=== PATIENT | male | born 1950 | race Caucasian/White ===

== ENCOUNTER 2016-08-06 12:56 | Outpatient (CLI) | payer MEDICARE, OTHER | END 2016-08-06 12:57 | LOC: PULMONARY 12:56 | PROVIDERS: ATTEND Internal Medicine Critical Care Medicine | DX: G47.33 Obstructive sleep apnea (adult) (pediatric) (principal) | CPT/HCPCS: 99214; G0463 ==

== ENCOUNTER 2016-08-27 14:22 | Observation (INO) | payer MEDICARE, OTHER ==
[2016-08-27] MEDS ORDERED: 0.9 % SODIUM CHLORIDE 500 ML IV ONE (14:41)
[2016-08-27 14:48] LABS: BASOPHILS % 0.6 (0.0-1.5); EOSINOPHILS % 2.8 % (0.0-6.8); MEAN CORPUSCULAR HEMOGLOBIN 32.5 pg (28.0-34.0); MEAN CORPUSCULAR VOLUME 94.5 fl (80.0-100.0); MONOCYTES % 4.3 % (0.0-11.0)
[2016-08-27] MEDS ORDERED: DIPH,PERTUSS(ACELL),TET VAC/PF 0.5 ML DISP.SYRIN IM ONE (14:50)
[2016-08-27] MEDS ORDERED: HYDROmorphone HCL/PF 1 MG/ML DISP.SYRIN ONE (14:54)
[2016-08-27 15:03] LABS: eGFR (African) > 60; eGFR (Non-African) > 60
[2016-08-27] MEDS ORDERED: HYDROmorphone HCL/PF 1 MG/ML DISP.SYRIN IVP ONE ×2 (15:03→17:09)
--- NOTE | 2016-08-27 17:09 | ED Physician Documentation ---
Fall - HISTORIAN Historian: patient - HPI Stated Complaint: fall Chief Complaint: Fall Additional Information: fell 8 feet off ladder, no loc Onset: just prior to arrival Where: home Context: other (fell 8 feet off ladder) r: moderate Associated Symptoms:: no loss of consciousness Location of Pain/Injury: head, neck, chest, upper extremity (left) Injury to Right Extremity: none Injury to Left Extremity: elbow Front/Back of Body, Lg ([place]): 1 - lac x 2 nisa 3 cm Further Comments: no - ROS CONST: no problems NEURO: denies: dizziness, anxiety, depression MS/SKIN/LYMPH: other (anterolateral left chest pain) EYES/ENT: none CVS/RESP: chest pain (as above) GI/: denies: problems urinating, nausea, vomiting - PAST HX Past History: diabetes Type 2, other (htn, hyperlipidemia) Allergies/Adverse Reactions: Allergies Allergy/AdvReac Type Severity Reaction Status Date / Time No Known Allergies Allergy Verified 08/27/16 14:48 Home Medications: Ambulatory Orders Medication Instructions Recorded Atorvastatin Calcium 20 mg PO 08/27/16 Lisinopril [Lisinopril] 08/27/16 Metformin HCl [Metformin HCl ER] 1,000 mg PO 08/27/16 gliPIZIDE [Glucotrol] 08/27/16 - SOCIAL HX Smoking History: non-smoker Alcohol Use: occasionally Drug Use: none - FAMILY HX Family History: no significant history - VITAL SIGNS Vital Signs: Vital Signs Temp Pulse Resp BP Pulse Ox 98.3 F 96 H 22 121/85 93 08/27/16 14:40 08/27/16 14:40 08/27/16 14:40 08/27/16 14:40 08/27/16 14:40 - REVIEWED ASSESSMENTS Nursing Assessment Reviewed: Yes Vitals Reviewed: Yes Procedures Wound Location: upper extremity Wound Length: 3 cm Wound's Depth, Shape: into muscle, flap Wound Explored: no foreign body removed Betadine Prep?: Yes Anesthesia: 2% Lidocaine Volume of Anesthetic: 8 cc Wound Debrided: none Wound Repaired With: sutures Suture Size/Type: 3:0, proline Number of Sutures: 5 Layer Closure?: No Sterile Dressing Applied?: Yes Splint Applied?: No Sling Applied?: No Progress - Results/Orders Results/Orders: cbc, cmp, ua, ct head, c-spine and chest ordered - Progress Progress: laceration repaired left elbow, pt. admitted because RA pulse 84-86% Critical Care Note - Critical Care Note Total Time (mins): 0 ED Results Lab/Radiology - Lab Results Lab Results: Lab Results 08/27/16 08/27/16 08/27/16 14:40 14:40 14:40 WBC 10.00 K/ul K/ul (4.00-12.00) RBC 4.82 M/ul M/ul (3.90-5.20) Hgb 15.6 g/dL g/dL (12.0-18.0) Hct 45.6 % % (37.0-53.0) MCV 94.5 fl fl (80.0-100.0) MCH 32.5 pg pg (28.0-34.0) MCHC 34.4 g/dL g/dL (30.0-36.0) RDW 13.6 % % (11.3-14.3) Plt Count 221 K/mm3 K/mm3 (130-400) Neut % (Auto) 69.3 % % (39.0-79.0) Lymph % (Auto) 21.3 % % (16.0-50.0) [place] % (Auto) 4.3 % % (0.0-11.0) Eos % (Auto) 2.8 % % (0.0-6.8) Baso % (Auto) 0.6 (0.0-1.5) Neut # 7.0 # k/uL # k/uL (1.4-7.7) Lymph # 2.1 # k/uL # k/uL (0.6-4.0) [place] # 0.4 # k/uL # k/uL (0.0-0.9) Eos # 0.3 # k/uL # k/uL (0.0-0.6) Baso # 0.1 # k/uL # k/uL (0.0-0.5) Reactive Lymphs % 1.7 % % (0.0-5.0) Reactive Lymphs # 0.2 # k/uL # k/uL (0.0-0.8) PT 10.2 Seconds Seconds (9.7-11.5) INR 1.0 (0.9-1.1) APTT 21.9 Seconds L Seconds (24.5-32.8) Sodium 137 mmol/L mmol/L (136-145) Potassium 4.2 mmol/L mmol/L (3.5-5.0) Chloride 108 mmol/L mmol/L (98-110) Carbon Dioxide 28 mmol/L mmol/L (20-32) BUN 25 mg/dL mg/dL (10-26) Creatinine 1.2 mg/dL mg/dL (0.4-1.5) Estimated Creat Clear 114 Est GFR ( Amer) > 60 (60 - ) Est GFR (Non-Af Amer) > 60 (60 - ) Glucose 148 mg/dL H mg/dL (70-99) Calcium 9.1 mg/dL mg/dL (8.5-10.5) Total Bilirubin 0.4 mg/dL mg/dL (0.2-1.2) AST 48 U/L H U/L (0-41) ALT 70 U/L H U/L (0-45) Alkaline Phosphatase 123 U/L H U/L (46-116) Total Protein 7.5 g/dL g/dL (6.0-8.5) Albumin 4.5 g/dL g/dL (3.0-5.5) - Radiology Radiology Impressions: ct chest shows no pneumothorax, multiple closed rib fractures, ct head and c- spine unremarkable, x-ray left elbow and wrist neg - Orders Orders: ED Orders Category Date Time Status Saline Lock [Remove IV/Saline Lock] .PRN Care 08/27/16 14:[address] BRAIN W/O CONTRAST Stat Exams 08/27/[address] C-SPINE W/O CONTRAST Stat Exams 08/27/[address] CHEST W/O CONTRAST Stat Exams 08/27/16 Ordered ELBOW 3 VIEWS [RAD] Routine Exams 08/27/16 Ordered WRIST 3 VIEWS OR MORE [RAD] Stat Exams 08/27/16 Ordered CBC/PLATELET/DIFF Routine Lab 08/27/16 14:40 Completed CMP Routine Lab 08/27/16 14:40 Completed PT-INR Routine Lab 08/27/16 14:40 Completed PTT Routine Lab 08/27/16 14:40 Completed URINALYSIS Routine Lab 08/27/16 14:39 Ordered 0.9 % Sodium Chloride [Normal Saline] 500 ml Med 08/27/16 14:41 Discontinued IV NOW Diph,Pertuss(Acell),Tet Vac/Pf [Adacel] Med 08/27/16 14:50 Discontinued 0.5 ml IM .ONCE ONE HYDROmorphone HCL/PF [Dilaudid] Med 08/27/16 14:54 Discontinued 1 mg .ROUTE .STK-MED ONE HYDROmorphone HCL/PF [Dilaudid] Med 08/27/16 15:03 Discontinued 1 mg IVP NOW ONE Oxygen Daily Oxygen 08/27/16 14:45 Ordered EKG WITH COMPARISON Routine Ther 08/27/16 Ordered Fall Physical Exam - Physical Exam General Appearance: alert, moderate distress Head: non-tender, no swelling, no obvious injury. No: raccoon eyes, Montez's sign Neck: non-tender, painless ROM Eye: TERI, EOMI, lids & conjunct. nml ENT: nml external inspection, no dental injury, no oral injury, airway nml Resp/CVS: breath sounds nml, rib tenderness (left ribs 1-7 anterior, mid axillary and posteriorly), crepitus, splinting. No: wheezes, rales, rhonchi Abdomen: soft, no organomegaly, normal bowel sounds, no abdominal bruit, no distension, non-tender Neuro: oriented x3, CN's nml as tested, sensation nml, motor nml, mood/affect nml, church organist nml, reflexes nml Skin: color nml, other (3 cm laceration left elbow, 2 superficial lacerationsd elbow, multiple scrapes right knee, left anterior chest and left forearm) Back: no vertebral tenderness Extremities: atraumatic, pelvis stable, hips non-tender, no pedal edema, nml ROM Joint: joints nml, nml ROM - [place] Coma Score Eyes Open: Spontaneous Speech: Oriented Motor: Obeys Commands (15) Discharge Clincal Impression: Dyspnea Qualifiers: Dyspnea type: unspecified Qualified Code(s): R06.00 - Dyspnea, unspecified Multiple rib fractures Qualifiers: Encounter type: initial encounter Fracture type: closed Laterality: left Qualified Code(s): S22.42XA - Multiple fractures of ribs, left side, initial encounter for closed fracture Referrals: Chuck Bob MD [Primary Care Provider] - 2 Days Home Medications: Ambulatory Orders Atorvastatin Calcium 20 mg PO 08/27/16 Lisinopril [Lisinopril] 08/27/16 Metformin HCl [Metformin HCl ER] 1,000 mg PO 08/27/16 gliPIZIDE [Glucotrol] 08/27/16 Comments: Case discussed with Dr. Bob. Accepts admission. Pt. admitted to observational status. Condition: Stable Disposition: ADMITTED INPATIENT Decision to Admit: [id number] Decision Time: 17:00
[2016-08-27] MEDS ORDERED: NEOMYCIN SU/BACITRAC ZN/POLY 1 EACH OINT.PACK TP ONE (19:28)
[2016-08-27] MEDS ORDERED: Lidocaine 1% 5ml(IM or SUTURE)(PAIN CLINIC) IJ ONE (19:28)
[2016-08-27 19:30] VITALS: BMI 36.7
[2016-08-27] MEDS ORDERED: ATORVASTATIN CALCIUM 80 MG TABLET PO ONE (20:38)
[2016-08-27] MEDS ORDERED: CEPHALEXIN 250 MG CAPSULE ONE (20:39)
[2016-08-27] MEDS ORDERED: HYDROmorphone HCL/PF 2 MG/ML DISP.SYRIN ONE (20:39)
[2016-08-27] MEDS: ATORVASTATIN CALCIUM 80 MG TABLET PO SCH (20:42)
[2016-08-27] MEDS: CEPHALEXIN 250 MG CAPSULE PO SCH (20:43)
[2016-08-27] MEDS: HYDROmorphone HCL/PF 1 MG/ML DISP.SYRIN IVP PRN (20:45)
[2016-08-27] MEDS: SALINE FLUSH 10 ML DISP.SYRIN IV SCH (21:42)
[2016-08-27] MEDS ORDERED: 0.9 % SODIUM CHLORIDE 1,000 ML IV ONE (21:48)
[2016-08-27] MEDS: 0.9 % SODIUM CHLORIDE 1,000 ML IV SCH (21:50)
[2016-08-28] MEDS ORDERED: HYDROmorphone HCL/PF 2 MG/ML DISP.SYRIN ONE ×4 (01:04→14:21)
[2016-08-28] MEDS ORDERED: SALINE FLUSH 10 ML DISP.SYRIN IVF ONE ×2 (01:04→04:02)
[2016-08-28] MEDS: HYDROmorphone HCL/PF 1 MG/ML DISP.SYRIN IVP PRN ×4 (01:17→14:26)
--- NOTE | 2016-08-28 04:01 | Diagnostic Imaging Report ---
BROCK REEVES~ [facility] [address] [facility] [address] [place], [place]. [address] ~ ~ ~ ~ Report Submission Date: August 27, 2016 3:50:16 PM CDT Patient ~ Study Name: FABIAN MCNAIR ~ Date: August 27, 2016 3:11:28 PM CDT ~ Modality Type: CT\SR Gender: M ~ Description: CT C-SPINE W/O CONTRAS : 50 ~ Institution: [facility] Physician: BROCK REEVES ~ ~ ~ ~ CT cervical spine History: PAIN AFTER FALL FROM LADDER TODAY, PATIENT LANDED ON LEFT SIDE Multiple axial images the cervical spine are submitted with reconstructions Findings: No comparison studies No evidence of acute fracture. There is reversal of cervical lordosis, apex at C5-6, sagittal reconstructions are limited for evaluation of the lower cervical spine No obvious prevertebral hematoma. Multilevel degenerative changes are seen throughout the cervical spine with presence of osteophytes, reduced vertebral body height. There is grade I anterolisthesis C7 on T1 Impression: 1. Reversal of the cervical lordosis with apex at C5-6, age is indeterminate, likely chronic. Please compare with prior studies and pain correlation. 2. C7, T1 vertebral body cortex is not clearly seen on the sagittal reconstructions. Within this limitation, no obvious acute fracture is identified Dens is intact. 3. No prevertebral hematoma 4. Multilevel degenerative changes. Grade I anterolisthesis of C7 on T1 . Followup may be done. ~ Electronically signed on August 27, 2016 3:50:16 PM CDT by: Taryn REBOLLEDO
--- NOTE | 2016-08-28 04:02 | Diagnostic Imaging Report ---
BROCK REEVES~ [facility] [address] [facility] [address] [place], [place]. [address] ~ ~ ~ ~ Report Submission Date: August 27, 2016 3:53:08 PM CDT Patient ~ Study Name: FABIAN MCNAIR ~ Date: August 27, 2016 3:08:40 PM CDT ~ Modality Type: CT\SR Gender: M ~ Description: CT BRAIN W/O CONTRAST : 50 ~ Institution: [facility] Physician: BROCK REEVES ~ ~ ~ ~ CT head History: PATIENT FELL FROM LADDER TODAY, LACERATION TO TOP OF HEAD Findings: No comparison studies No obvious evidence of acute intracranial hemorrhage. No midline shift. Cerebral atrophy. Left mastoid sclerotic. No skull fracture. Impression: No obvious evidence of acute intracranial hemorrhage. No midline shift. Cerebral atrophy. Sclerotic left mastoid ~ Electronically signed on August 27, 2016 3:53:08 PM CDT by: Taryn REBOLLEDO
[2016-08-28] MEDS ORDERED: CEPHALEXIN 250 MG CAPSULE ONE ×2 (04:03→12:56)
[2016-08-28] MEDS ORDERED: LISINOPRIL 5 MG TABLET ONE (04:03)
--- NOTE | 2016-08-28 04:03 | Diagnostic Imaging Report ---
BROCK REEVES~ [facility] [address] [facility] [address] ~ ~ ~ ~ Report Submission Date: August 27, 2016 3:55:51 PM CDT Patient ~ Study Name: FABIAN MCNAIR ~ Date: August 27, 2016 3:28:43 PM CDT ~ Modality Type: CR Gender: M ~ Description: UPPER EXTREMITY : 50 ~ Institution: [facility] Physician: BROCK REEVES ~ ~ ~ ~ 3 views of the left elbow History: LEFT ELBOW PAIN AND LACERATION AFTER FALL FROM LADDER TODAY, POSITIONING LIMITED DUE TO PAIN AND LACERATIO findings: No comparison studies Soft tissue swelling is noted at the left elbow. No obvious evidence of acute fracture or dislocation Laceration with air locules are noted in the posterior soft tissues, the lateral view is suboptimal Impression: Limited lateral view No obvious evidence of acute fracture or dislocation Soft tissue laceration posteriorly at the left elbow with air locules ~ Electronically signed on August 27, 2016 3:55:51 PM CDT by: Taryn REBOLLEDO
--- NOTE | 2016-08-28 04:04 | Diagnostic Imaging Report ---
BROCK REEVES~ [facility] [address] [address] ~ ~ ~ ~ Report Submission Date: August 27, 2016 3:58:28 PM CDT Patient ~ Study Name: FABIAN MCNAIR ~ Date: August 27, 2016 3:42:17 PM CDT ~ Modality Type: CR Gender: M ~ Description: UPPER EXTREMITY : 50 ~ Institution: [facility] Physician: BROCK REEVES ~ ~ ~ ~ 3 views of the left wrist History: LEFT WRIST PAIN AFTER FALL FROM LADDER The findings: No comparison studies No evidence of acute fracture or dislocation of the left wrist. A well corticated osseous rounded density adjacent to the ulnar styloid is suggestive of prior injury Soft tissue swelling is present Impression: No obvious evidence of acute fracture or dislocation of the left wrist. ~ Electronically signed on August 27, 2016 3:58:28 PM CDT by: Taryn REBOLLEDO
--- NOTE | 2016-08-28 04:05 | Diagnostic Imaging Report ---
BROCK REEVES~ [facility] [address] [address] ~ ~ ~ ~ Report Submission Date: August 27, 2016 3:58:28 PM CDT Patient ~ Study Name: FABIAN MCNAIR ~ Date: August 27, 2016 3:42:17 PM CDT ~ Modality Type: CR Gender: M ~ Description: UPPER EXTREMITY : 50 ~ Institution: [facility] Physician: BROCK REEVES ~ ~ ~ ~ 3 views of the left wrist History: LEFT WRIST PAIN AFTER FALL FROM LADDER The findings: No comparison studies No evidence of acute fracture or dislocation of the left wrist. A well corticated osseous rounded density adjacent to the ulnar styloid is suggestive of prior injury Soft tissue swelling is present Impression: No obvious evidence of acute fracture or dislocation of the left wrist. ~ Electronically signed on August 27, 2016 3:58:28 PM CDT by: Taryn REBOLLEDO
[2016-08-28] MEDS: CEPHALEXIN 250 MG CAPSULE PO SCH ×2 (07:46→21:14)
[2016-08-28] MEDS: LISINOPRIL 5 MG TABLET PO SCH (07:47)
[2016-08-28 08:00] LABS: eGFR (African) > 60; eGFR (Non-African) > 60
--- NOTE | 2016-08-28 09:57 | History and Physical Report ---
History of Present Illnes - History of Present Illness Reason for Visit: rib fractures with hypoxia History of Present Illness: 66yo white male who fell off a roof and onto his ladder. Patient was seen in the ED. Patient had LOC for a few seconds. Was found to have 4 rib fractures and pulmonary contusion. Patient was only able to maintain his O2 saturation to 86% on RA even after analgesics. After placement of supplemental oxygen it improved to the mid ninnies. A CT scan was done and did show 4 rib fractures on the right side. Patient did not have any pneumothorax but was noted to have pulmonary contusion. Patient was subsequently admitted to the hospital for further care and evaluation. - Past Medical History Cardiac: HTN Pulmonary: Sleep Apnea Endocrine: Diabetes (type 2) - Past Surgical History Past Surgical History: Other (right ear reconstructive surgery.) - Past Social History Smoke: No Alcohol: None Drugs: None Lives: With Family Domestic Violence: Negative - Health Maintenance Health Maintenance: Tetanus (today), Pneumococcal Vaccine (prevnar 13) Influenza Vaccine: Current for this Influenza Season Pneumonia Vaccine: Yes (Prevnar 13) Resuscitation Status: Resusciation Status Resuscitation Status Full Code - Unable to Obtain History Unable to Obtain: No Review of Systems - Review of Systems Constitutional: negative: Fever, Chills, Weakness Eyes: negative: pain, vision change ENT: negative: Ear Pain, Ear Discharge, Nose Pain, Nose Discharge, Nose Congestion, Throat Pain, Throat Swelling Respiratory: Shortness of Breath, Pleuritic Pain. negative: Cough, Dry, Hemoptysis, SOB with Excertion, Sputum, Wheezing Cardiovascular: Chest Pain (chest wall). negative: Palpitations, Orthopnea, Paroxysmal Noc. Dyspnea, Light Headedness Gastrointestinal: negative: Nausea, Vomiting, Abdominal Pain, Diarrhea, Constipation, Melena, Hematochezia Genitourinary: negative: Dysuria, Frequency, Incontinence, Hematuria Musculoskeletal: negative: Neck Pain, Shoulder Pain, Arm Pain, Back Pain, Hand Pain, Leg Pain, Foot Pain Skin: negative: Rash Neurological: negative: Weakness, Numbness, Confusion, Seizures - Medications/Allergies Allergies/Adverse Reactions: Allergies Allergy/AdvReac Type Severity Reaction Status Date / Time No Known Allergies Allergy Verified 08/27/16 14:48 Home Medications: Home Medications Atorvastatin Calcium 20 mg PO 08/27/16 Lisinopril [Lisinopril] 08/27/16 Metformin HCl [Metformin HCl ER] 1,000 mg PO 08/27/16 gliPIZIDE [Glucotrol] 08/27/16 Current Inpatient Medications: Current Inpatient Medications Atorvastatin Calcium (Lipitor) 20 mg PO HS [facility] Last Admin: 08/27/16 20:42 Dose: 20 mg Cephalexin (Keflex) 1,000 mg PO BID [facility] Last Admin: 08/28/16 07:46 Dose: 1,000 mg Glipizide (Glucotrol Xl) 5 mg PO 0730 [facility] Last Admin: 08/28/16 07:46 Dose: 5 mg Hydromorphone HCl (Dilaudid) 1 mg IVP Q4H PRN PRN Reason: PAIN Stop: 08/29/16 08:00 Last Admin: 08/28/16 08:41 Dose: 1 mg Lisinopril (Prinivil) 5 mg PO DAILY [facility] Last Admin: 08/28/16 07:47 Dose: 5 mg Metformin HCl (Glucophage) 1,[place] [id number] [facility] Last Admin: 08/28/16 07:45 Dose: 1,000 mg Miscellaneous (Chem Sticks) 1 each MC CHEMQID [facility] Last Admin: 08/28/16 07:44 Dose: 1 each Oxycodone/Acetaminophen (Percocet 5-325 Mg Tablet) 2 each PO Q4 PRN PRN Reason: Severe Pain Sodium Chloride (Normal Saline Flush) 3 ml IV BID [facility] Last Admin: 08/27/16 21:42 Dose: 3 ml Exam - Exam Vital Signs: Vital Signs (72 hours) 08/27/16 08/27/16 08/27/16 18:36 18:48 20:03 Temperature 97.8 F 97.8 F Pulse Rate Pulse Rate [ 102 H 102 H Left Pulse ox] Respiratory 20 18 Rate Blood Pressure 123/73 123/73 [Right Arm] O2 Sat by Pulse 93 93 94 Oximetry 08/27/16 08/27/16 08/27/16 21:51 22:00 22:36 Temperature 97.3 F L 97.3 F L Pulse Rate 108 H Pulse Rate [ 112 H 112 H 112 H Left Pulse ox] Respiratory 20 20 20 Rate Blood Pressure 138/93 138/93 [Right Arm] O2 Sat by Pulse 94 94 Oximetry 08/27/16 08/28/16 08/28/16 23:00 00:00 01:00 Temperature Pulse Rate 104 H 104 H 101 H Pulse Rate [ Left Pulse ox] Respiratory Rate Blood Pressure [Right Arm] O2 Sat by Pulse Oximetry 08/28/16 08/28/16 08/28/16 01:51 02:00 03:00 Temperature 97.8 F Pulse Rate 101 H 102 H Pulse Rate [ 93 H Left Pulse ox] Respiratory 22 Rate Blood Pressure 181/105 [Right Arm] O2 Sat by Pulse 93 Oximetry 08/28/16 08/28/16 08/28/16 04:00 05:00 05:12 Temperature Pulse Rate 102 H 102 H 102 H Pulse Rate [ Left Pulse ox] Respiratory Rate Blood Pressure [Right Arm] O2 Sat by Pulse Oximetry 08/28/16 08/28/16 06:00 07:12 Temperature 96.9 F L Pulse Rate 105 H Pulse Rate [ 102 H Left Pulse ox] Respiratory 22 Rate Blood Pressure 162/98 [Right Arm] O2 Sat by Pulse 92 Oximetry General: Alert, Oriented to Person, Oriented to Place, Oriented to Time, Cooperative, Moderate distress, Obese HEENT: Atraumatic, PERRLA, EOMI, Mouth Mucous membr. moist/[place], Nose Mucous membr. moist/[place], Decreased Hearing Acuity. No: Hearing Grossly Normal Neck: Normal Range of Motion Carotids: WNL Thyroid: WNL Lungs: Normal air movement, Speaks full Sentences, Respiratory Distress, Retractions/Splinting. No: Clear to auscultation (dullness tot he left lateral lung field) Cardiovascular: Regular rate, Normal S1, Normal S2, No murmurs Abdomen: Normal bowel sounds, Soft, No tenderness, No hepatospenomegaly, No masses. No: Distended Integumentary: Normal, [place], Warm, Dry Extremities: No clubbing, No cyanosis, No edema, Normal pulses, No tenderness/ swelling Neurological: Normal gait, Normal speech, Strength Equal Bilat, Normal tone, Sensation intact, Cranial nerves 3-12 NL, Reflexes 2+ Psych/Mental Status: Mental status NL, Mood NL, Appropriate Affect, Intact Judgment - Laboratory Results Laboratory Results: Laboratory Results 08/28/16 06:45 Sodium 136 Potassium 4.1 Chloride 99 Carbon Dioxide 24 BUN 22 Creatinine 0.9 Estimated Creat Clear 152 Est GFR ( Amer) > 60 Est GFR (Non-Af Amer) > 60 Glucose 183 H Calcium 9.0 Assessment/Plan - Assessment/Plan (1) Pulmonary contusion Status: Acute Current Visit: Yes Plan: Patient will be continued on supplemental oxygen therapy. Will repeat chest x- ray in the a.m. 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 use Qualified Code(s): E11.9 - Type 2 diabetes mellitus without complications Assessment: Will continue with home meds (3) Essential hypertension Status: Chronic Current Visit: Yes Assessment: Will continue with home meds (4) Multiple rib fractures Status: Acute Current Visit: Yes Qualifiers: Encounter type: initial encounter Fracture type: closed Laterality: left Qualified Code(s): S22.42XA - Multiple fractures of ribs, left side, initial encounter for closed fracture Assessment: Pain control, incentive spirometry VTE Assessment - RISK FACTOR SCORE VTE RISK FACTOR SCORES: AGE OVER 60 YEARS, ANTICIPATED BED CONFINEMENT OR IMMOBILIZATION > 24 HOURS - RISK VTE MODERATE RISK: SCORE OF 2 (RISK PROXIMAL DVT 2-4%) PROPHYAXIS NEEDED
--- NOTE | 2016-08-28 09:58 | Inpatient Progress Note ---
Subjective - Required Recertification Statement I anticipate X number of days because-include discharge plan: 1 - Review of Systems Events since last encounter: Patient seem to be doing some better today. Patient continues to have a lot of pain with breathing and movement. Patient continued to drop his oxygen saturation when he is off of oxygen. Does drop down to 86-88% on room air. With supplemental oxygen it will increase to 96% on 4 L. Patient is using his incentive spirometry. Can you get up to 2000cc. Patient is using IV analgesic medications on a fairly regular basis. Patient appetite has been decreased. Blood sugars have been MV 100 to 200 range. Patient is not had any hypoglycemic episodes. Objective - Exam Vitals and I&O: Vital Signs Temp 96.9 F L 08/28/16 06:00 Pulse 105 H 08/28/16 07:12 Resp 22 08/28/16 06:00 BP 162/98 08/28/16 06:00 Pulse Ox 92 08/28/16 06:00 Intake & Output 08/27/16 08/27/16 08/28/16 11:59 23:59 11:59 Intake Total 744 Balance 744 Weight 133.356 kg 84.935 kg Intake: IV 504 Right Hand 504 Oral 240 Other: # Voids 1 General: Alert, Oriented to Person, Oriented to Place, Oriented to Time, Cooperative, Moderate distress Neck: Supple, No JVD Lungs: Speaks full Sentences, Rales (left posterio and lateral), Retractions/ Splinting, Decreased Air Movement, Chest Wall Tenderness. No: Wheezes Cardiovascular: Regular rate, Normal S1, Normal S2, No murmurs Abdomen: Normal bowel sounds Extremities: No clubbing, No cyanosis, No edema Skin: Normal, [place], Warm, Dry Neurological: Normal gait, Normal speech, Strength Equal Bilat, Normal tone Psych/Mental Status: Mental status NL (glascow coma scale 15/15), Mood NL - Results Results: Laboratory Results WBC 10.00 K/ul (4.00-12.00) 08/27/16 14:40 RBC 4.82 M/ul (3.90-5.20) 08/27/16 14:40 Hgb 15.6 g/dL (12.0-18.0) 08/27/16 14:40 Hct 45.6 % (37.0-53.0) 08/27/16 14:40 MCV 94.5 fl (80.0-100.0) 08/27/16 14:40 MCH 32.5 pg (28.0-34.0) 08/27/16 14:40 MCHC 34.4 g/dL (30.0-36.0) 08/27/16 14:40 RDW 13.6 % (11.3-14.3) 08/27/16 14:40 Plt Count 221 K/mm3 (130-400) 08/27/16 14:40 Neut % (Auto) 69.3 % (39.0-79.0) 08/27/16 14:40 Lymph % (Auto) 21.3 % (16.0-50.0) 08/27/16 14:40 [place] % (Auto) 4.3 % (0.0-11.0) 08/27/16 14:40 Eos % (Auto) 2.8 % (0.0-6.8) 08/27/16 14:40 Baso % (Auto) 0.6 (0.0-1.5) 08/27/16 14:40 Neut # 7.0 # k/uL (1.4-7.7) 08/27/16 14:40 Lymph # 2.1 # k/uL (0.6-4.0) 08/27/16 14:40 [place] # 0.4 # k/uL (0.0-0.9) 08/27/16 14:40 Eos # 0.3 # k/uL (0.0-0.6) 08/27/16 14:40 Baso # 0.1 # k/uL (0.0-0.5) 08/27/16 14:40 Reactive Lymphs % 1.7 % (0.0-5.0) 08/27/16 14:40 Reactive Lymphs # 0.2 # k/uL (0.0-0.8) 08/27/16 14:40 PT 10.2 Seconds (9.7-11.5) 08/27/16 14:40 INR 1.0 (0.9-1.1) 08/27/16 14:40 APTT 21.9 Seconds (24.5-32.8) L 08/27/16 14:40 Sodium 136 mmol/L (136-145) 08/28/16 06:45 Potassium 4.1 mmol/L (3.5-5.0) 08/28/16 06:45 Chloride 99 mmol/L (98-110) 08/28/16 06:45 Carbon Dioxide 24 mmol/L (20-32) 08/28/16 06:45 BUN 22 mg/dL (10-26) 08/28/16 06:45 Creatinine 0.9 mg/dL (0.4-1.5) 08/28/16 06:45 Estimated Creat Clear 152 08/28/16 06:45 Est GFR ( Amer) > 60 (60-) 08/28/16 06:45 Est GFR (Non-Af Amer) > 60 (60-) 08/28/16 06:45 Glucose 183 mg/dL (70-99) H 08/28/16 06:45 Calcium 9.0 mg/dL (8.5-10.5) 08/28/16 06:45 Total Bilirubin 0.4 mg/dL (0.2-1.2) 08/27/16 14:40 AST 48 U/L (0-41) H 08/27/16 14:40 ALT 70 U/L (0-45) H 08/27/16 14:40 Alkaline Phosphatase 123 U/L (46-116) H 08/27/16 14:40 Total Protein 7.5 g/dL (6.0-8.5) 08/27/16 14:40 Albumin 4.5 g/dL (3.0-5.5) 08/27/16 14:40 Assessment/Plan - Assessment/Plan (1) Multiple rib fractures Status: Acute Current Visit: Yes Qualifiers: Encounter type: initial encounter Fracture type: closed Laterality: left Qualified Code(s): S22.42XA - Multiple fractures of ribs, left side, initial encounter for closed fracture Assessment: Patient continues to have a lot of pain with movement and deep breathing. (2) Pulmonary contusion Status: Acute Current Visit: Yes Assessment: Patient continues to have pulmonary contusion on chest x-ray. No new pneumothorax could be appreciated.It is apparent that the patient will need home oxygen therapy at this time. I will make arrangements for this. Patient will have a physical therapy consult to see if there's something that we can do to help him move around with less pain. 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
[2016-08-28] MEDS ORDERED: ENOXAPARIN SODIUM 100 MG/ML DISP.SYRIN SQ ONE (10:15)
[2016-08-28] MEDS ORDERED: oxyCODONE/ACETAMINOPHEN 5/325 TABLET PO ONE ×3 (11:29→21:17)
[2016-08-28] MEDS: 0.9 % SODIUM CHLORIDE 1,000 ML IV SCH (11:34)
[2016-08-28] MEDS: oxyCODONE/ACETAMINOPHEN 5/325 TABLET PO PRN ×3 (11:34→21:18)
[2016-08-28] MEDS: SALINE FLUSH 10 ML DISP.SYRIN IV SCH ×2 (11:35→21:15)
[2016-08-28] MEDS ORDERED: ENOXAPARIN SODIUM 30 MG/0.3 ML DISP.SYRIN SQ ONE (11:36)
[2016-08-28] MEDS ORDERED: ATORVASTATIN CALCIUM 80 MG TABLET PO ONE (12:55)
[2016-08-28] MEDS ORDERED: DOCUSATE SODIUM 100 MG CAPSULE ONE (12:56)
--- NOTE | 2016-08-28 14:03 | Diagnostic Imaging Report ---
ANITA CLEARY [facility] [address] [facility] [address] [address] Report Submission Date: August 28, 2016 7:24:33 AM CDT Patient Study Name: FABIAN MCNAIR Date: August 28, 2016 6:50:22 AM CDT Modality Type: CR Gender: M Description: CHEST : 50 Institution: [facility] Physician: ANITA CLEARY Chest, PA and lateral History: Followup pneumothorax, rib fractures Findings: No infiltrate, effusion or pneumothorax is present. Heart size and pulmonary vascularity are normal. There is minimal left basilar atelectasis. Impression: Minimal left basilar atelectasis. Electronically signed on August 28, 2016 7:24:33 AM CDT by: Brayan REBOLLEDO
[2016-08-28] MEDS: ATORVASTATIN CALCIUM 80 MG TABLET PO SCH (21:15)
[2016-08-28] MEDS: DOCUSATE SODIUM 100 MG CAPSULE PO SCH (21:16)
[2016-08-29] MEDS ORDERED: oxyCODONE/ACETAMINOPHEN 5/325 TABLET PO ONE ×3 (03:06→10:48)
[2016-08-29] MEDS: oxyCODONE/ACETAMINOPHEN 5/325 TABLET PO PRN ×3 (03:18→10:51)
[2016-08-29] MEDS ORDERED: SALINE FLUSH 10 ML DISP.SYRIN IVF ONE (04:08)
[2016-08-29] MEDS ORDERED: DOCUSATE SODIUM 100 MG CAPSULE ONE (04:09)
[2016-08-29] MEDS ORDERED: CEPHALEXIN 250 MG CAPSULE ONE (04:09)
[2016-08-29] MEDS ORDERED: LISINOPRIL 5 MG TABLET ONE (04:09)
[2016-08-29] MEDS: DOCUSATE SODIUM 100 MG CAPSULE PO SCH (09:43)
[2016-08-29] MEDS: CEPHALEXIN 250 MG CAPSULE PO SCH (09:43)
[2016-08-29] MEDS: LISINOPRIL 5 MG TABLET PO SCH (09:44)
[2016-08-29] MEDS: SALINE FLUSH 10 ML DISP.SYRIN IV SCH (09:44)
[2016-08-29 12:25] VITALS: BP 151/84
--- NOTE | 2016-09-03 18:01 | Discharge Summary ---
Discharge Summary - Discharge Sumary History of Present Illness: 66yo white male who fell off a roof and onto his ladder. Patient was seen in the ED. Patient had LOC for a few seconds. Was found to have 4 rib fractures and pulmonary contusion. Patient was only able to maintain his O2 saturation to 86% on RA even after analgesics. After placement of supplemental oxygen it improved to the mid ninnies. A CT scan was done and did show 4 rib fractures on the right side. Patient did not have any pneumothorax but was noted to have pulmonary contusion. Patient was subsequently admitted to the hospital for further care and evaluation. Condition at Discharge: Stable Home Medications: Ambulatory Orders Medication Instructions Recorded Atorvastatin Calcium 20 mg PO 08/27/16 Lisinopril 08/27/16 Metformin HCl [Metformin HCl ER] 1,000 mg PO 08/27/16 gliPIZIDE [Glucotrol] 08/27/16 Cephalexin [Keflex] 1,000 mg PO BID #10 cap 08/29/16 Docusate Sodium [Colace] 100 mg PO BID #100 cap 08/29/16 oxyCODONE HCL/ACETAMINOPHEN 2 each PO Q4 PRN #60 tab 08/29/16 [Percocet 5/325] Consultations this Visit: None Procedures this Visit: None Allergies/Adverse Reactions: Allergies Allergy/AdvReac Type Severity Reaction Status Date / Time No Known Allergies Allergy Verified 08/27/16 14:48 Discharge Summary: Patient was started on oxygen therapy. Oxygen was able to be decrease. However patient does not tolerate being on room air patient was discharged with supplemental oxygen. Patient was given pain medication to have needed for his rib fractures. Patient was transitioned from IV pain medication to oral pain medications. Patient diabetes mellitus did remain fairly stable. Patient did have some mild hypoglycemic episodes. Hypertension remains stable on home medications. PT consult was obtained. - Final Diagnosis (1) Pulmonary contusion Problems: improved (2) Multiple rib fractures Problems: stable (3) Diabetes type 2, controlled Problems: stable, some hyperglycemia (4) Essential hypertension Problems: stable Right or Left: Left, Right (5) COPD (chronic obstructive pulmonary disease) Problems: stable
== END 2016-08-29 11:25 | disposition home or self-care (01) ==
LOC: ED 14:22 → SOUTH 17:53 → INTOOBSV 17:53
PROVIDERS: ADMIT Family Medicine; ATTEND Family Medicine
DX: S27.329A Contusion of lung, unspecified, initial encounter (principal); W17.89XA Other fall from one level to another, initial encounter; Y93.9 Activity, unspecified; Y99.9 Unspecified external cause status; S22.49XA Multiple fractures of ribs, unspecified side, initial encounter for closed fracture; E11.9 Type 2 diabetes mellitus without complications; I10 Essential (primary) hypertension; J44.9 Chronic obstructive pulmonary disease, unspecified
CPT/HCPCS: 36415; 70450; 71020; 71250; 72125; 73080; 73110; 80048; 80053; 85025; 85610; 85730; 90715; 93005; 97161; 97530; A9270; G0378; G8981; G8982; J1170; J1650; J7030; J7060; 90471; 96361; 96374; 96375; 96376; 99284; G0379; S1016